=== PATIENT | male | born 1995 | race Caucasian/White ===

== ENCOUNTER 2021-11-22 08:07 | Outpatient (CLI) | payer BC, SELFPAY ==
[2021-11-22 08:46] LABS: 24Hr.Lytes Total Volume 2900 mL; Sodium 24 HR UR 197 mmol/24h (40-220); Urine Chloride 66 mmol/L (Not Establ.); Urine Chloride / 24 Hours 191 mmol/24h (110-250); Urine Sodium 68 mmol/L (Not Establ.)
== END 2021-11-22 23:59 | disposition home or self-care (01) ==
PROVIDERS: Referring Provider Urology; Visit Provider Urology
DX: R35.0 Frequency of micturition (principal)
CPT/HCPCS: 81050; 82436; 84133; 84300